=== PATIENT | female | born 1995 ===

== ENCOUNTER 2017-01-27 09:11 | Emergency (ER) | payer OTHER, SELFPAY ==
[2017-01-27 09:40] VITALS: RESP 18
[2017-01-27 10:00] VITALS: BP 119/58; PULSE 70; TEMP 98; O2SAT 99
[2017-01-27 10:23] LABS: RBC URINE 10 /hpf (0-3); URINE BACTERIA OCC (<OCC); URINE BILIRUBIN NEGATIVE (NEGATIVE); URINE BLOOD SMALL (NEGATIVE); URINE COLOR YELLOW (YELLOW); URINE GLUCOSE (UA) NEG (Normal); URINE KETONE NEGATIVE (NEGATIVE); URINE LEUKOCYTE ESTERASE LARGE Leu/uL (Negative); URINE PROTEIN 30 mg/dL (NEGATIVE); URINE UROBILINOGEN 0.2-1.0 mg/dL (0.2-1.0); WBC URINE 28 /hpf (0-5)
--- NOTE | 2017-01-27 10:38 | ED PDOC ---
HPI: Female Pain Time Seen by Provider: 01/27/17 09:26 Chief Complaint (Nursing): Female Genitourinary Chief Complaint (Provider): Female Genitourinary History Per: Patient History/Exam Limitations: no limitations Onset/Duration Of Symptoms: Days (x90) Current Symptoms Are (Timing): Still Present Additional Complaint(s): Manjula Devine is a 21 year old female presenting to the ED for an evaluation of chronic vaginal pain and burning occurring for 3 months. The patient states her symptoms have sometimes been relieved but always return, worsening over the last few days prompting her ED visit. She states associated white discharge and pain during urination and sexual activity. The patient has visited the clinic prior to this and was told that she has an opening in her vagina. The patient denies vaginal bleeding, fever, abdominal pain, or any specific trauma. PMD: Non [facility] Provider Past Medical History Reviewed: Historical Data, Nursing Documentation, Vital Signs Vital Signs: Last Vital Signs Temp 98 F 01/27/17 09:59 Pulse 70 01/27/17 09:59 Resp 18 01/27/17 09:59 BP 119/58 L 01/27/17 09:59 Pulse Ox 99 01/27/17 09:59 - Medical History PMH: No Chronic Diseases - Family History Family History: States: Unknown Family Hx - Social History Current smoker - smoking cessation education provided: No Ex-Smoker (has not smoked in the last 12 months): No Alcohol: None Drugs: Denies - Immunization History Hx Tetanus Toxoid Vaccination: No Hx Influenza Vaccination: No Hx Pneumococcal Vaccination: No - Home Medications Home Medications: Ambulatory Orders Medication Instructions Recorded Miconazole 2% Vaginal [Monistat 7 1 ea VG DAILY #1 tube 01/27/17 Vaginal Cream] Nitrofurantoin Macrocrystals 100 mg PO BID #10 cap 01/27/17 [Macrobid] - Allergies Allergies/Adverse Reactions: Allergies Allergy/AdvReac Type Severity Reaction Status Date / Time No Known Allergies Allergy Verified 01/27/17 09:38 Review of Systems ROS Statement: Except As Marked, All Systems Reviewed And Found Negative Constitutional: Negative for: Fever Gastrointestinal: Negative for: Abdominal Pain Genitourinary Female: Positive for: Dysuria, Vaginal Discharge (white), Other ( vaginal pain and burning). Negative for: Vaginal Bleeding Physical Exam - Reviewed Nursing Documentation Reviewed: Yes Vital Signs Reviewed: Yes - Physical Exam Appears: Positive for: Well, Non-toxic, No Acute Distress Head Exam: Positive for: ATRAUMATIC, NORMAL INSPECTION, NORMOCEPHALIC Skin: Positive for: Normal Color, Warm, DRY Eye Exam: Positive for: EOMI, Normal appearance, PERRL ENT: Positive for: Normal ENT Inspection Neck: Positive for: Normal, Painless ROM, Supple Cardiovascular/Chest: Positive for: Regular Rate, Rhythm, Chest Non Tender Respiratory: Positive for: Normal Breath Sounds. Negative for: Respiratory Distress Gastrointestinal/Abdominal: Positive for: Normal Exam, Bowel Sounds, Soft. Negative for: Tenderness Pelvic Exam: Positive for: External Exam Normal (completed with robot technician [place] present), Speculum Exam Normal (significant amount of white discharge ), Discharge, Other (vulva - erythematous). Negative for: Active Bleeding, Blood, Lesions (or lacerations ) Back: Positive for: Normal Inspection Extremity: Positive for: Normal ROM Neurologic/Psych: Positive for: Alert, Oriented (x3). Negative for: Motor/ Sensory Deficits - ECG O2 Sat by Pulse Oximetry: 99 (RA) Pulse Ox Interpretation: Normal Medical Decision Making Medical Decision Making: Time: 09:26 Impression: Vulva vaginitis Differential includes but is not limited to Vero, UTI Plan: * ED Urine POC * Urine C&S * UA * Reevaluation Scribe Attestation: Documented by Jessica Nogueira, acting as a scribe for Rosibel Bell MD. Provider Scribe Attestation: All medical record entries made by the Scribe were at my direction and personally dictated by me. I have reviewed the chart and agree that the record accurately reflects my personal performance of the history, physical exam, medical decision making, and the department course for this patient. I have also personally directed, reviewed, and agree with the discharge instructions and disposition. Disposition - Clinical Impression Clinical Impression: Urinary tract infection, Vulvovaginitis - Patient ED Disposition Is Patient to be Admitted: No Doctor Will See Patient In The: Office Counseled Patient/Family Regarding: Studies Performed, Diagnosis, Need For Followup - Disposition Referrals: [facility] [Outside] Disposition: Routine/Home Disposition Time: 11:12 Condition: GOOD Additional Instructions: Take your medications as instructed. Follow up with your PCP in 3 days. Instructions: Urinary Tract Infection in Women (ED), Vulvovaginal Candidiasis ( ED)
[2017-01-27] MEDS ORDERED: Fluconazole 150 MG TAB PO ONE (11:30)
== END 2017-01-27 12:06 | disposition home or self-care (01) ==
LOC: H.ER 09:11
DX: N76.0 Acute vaginitis (principal); N39.0 Urinary tract infection, site not specified

== ENCOUNTER 2017-03-27 11:23 | Emergency (ER) | payer OTHER ==
[2017-03-27 11:32] VITALS: BMI 23.6
[2017-03-27] MEDS ORDERED: Sodium Chloride 0.9% 1,000 ML IV STA (12:04)
[2017-03-27 12:29] VITALS: RESP 16
--- NOTE | 2017-03-27 12:44 | ED PDOC ---
HPI: Female Pain Additional Complaint(s): 21F p/w suprapubic pain and urinary frequency w/o pain or burning that then developed into RIGHT CVA tenderness with associated chills and subjective fever. She currently denies any N/V, SOB, chest pain, palpitations. She was treated with 3 days of BID antibiotics within the past month for a UTI. PMD: [facility] PMH: None PSH: None Allergies: NKDA Smoker: No Alcohol: Socially Drugs: Denies LMP: 03/10/2017 <Kimberly Nguyễn - Last Filed: 03/27/17 13:20> <Pepito Barrett III - Last Filed: 03/29/17 12:35> Time Seen by Provider: 03/27/17 12:04 Chief Complaint (Nursing): Female Genitourinary Supervising Attending Note - Attestation: I have personally seen and examined this patient.: Yes I have fully participated in the care of the patient.: Yes I have reviewed all pertinent clinical information, including history, physical exam and plan: Yes <Pepito Barrett III - Last Filed: 03/29/17 12:35> Past Medical History Vital Signs: Last Vital Signs Temp 36.3 C L 03/27/17 11:30 Pulse 70 03/27/17 11:30 Resp 16 03/27/17 12:29 BP 115/57 L 03/27/17 11:30 Pulse Ox 99 03/27/17 11:30 - Family History Family History: States: Unknown Family Hx - Immunization History Hx Tetanus Toxoid Vaccination: No Hx Influenza Vaccination: No Hx Pneumococcal Vaccination: No <Kimberly Nguyễn - Last Filed: 03/27/17 13:20> Vital Signs: Last Vital Signs Temp 98.1 F 03/27/17 16:22 Pulse 67 03/27/17 16:22 Resp 16 03/27/17 16:22 BP 114/78 03/27/17 16:22 Pulse Ox 100 03/27/17 16:22 <Pepito Barrett III - Last Filed: 03/29/17 12:35> - Home Medications Home Medications: Ambulatory Orders Medication Instructions Recorded Miconazole 2% Vaginal [Monistat 7 1 ea VG DAILY #1 tube 01/27/17 Vaginal Cream] Nitrofurantoin Macrocrystals 100 mg PO BID #10 cap 01/27/17 [Macrobid] Ciprofloxacin [Cipro] 500 mg PO BID #14 tab 03/27/17 Ibuprofen [Motrin Tab] 600 mg PO Q6 PRN #15 tab 03/27/17 - Allergies Allergies/Adverse Reactions: Allergies Allergy/AdvReac Type Severity Reaction Status Date / Time No Known Allergies Allergy Verified 03/27/17 11:52 Review of Systems Constitutional: Positive for: Chills Genitourinary Female: Positive for: Frequency (RIGHT Back pain) <Kimberly Nguyễn - Last Filed: 03/27/17 13:20> Physical Exam - Reviewed Vital Signs Reviewed: Yes - Physical Exam Appears: Positive for: Well, Non-toxic, No Acute Distress Head Exam: Positive for: ATRAUMATIC, NORMAL INSPECTION Skin: Positive for: Normal Color, Warm, Dry Eye Exam: Positive for: Normal appearance, EOMI Cardiovascular/Chest: Positive for: Regular Rate, Rhythm Respiratory: Positive for: Normal Breath Sounds. Negative for: Wheezing Gastrointestinal/Abdominal: Positive for: Bowel Sounds, Soft. Negative for: Tenderness Back: Positive for: R CVA Tenderness Extremity: Positive for: Normal ROM <Kimberly Nguyễn - Last Filed: 03/27/17 13:20> - Laboratory Results Result Diagrams: 03/27/17 12:30 03/27/17 12:30 - ECG O2 Sat by Pulse Oximetry: 99 <Kimberly Nguyễn - Last Filed: 03/27/17 13:20> - Laboratory Results Result Diagrams: 03/27/17 12:30 03/27/17 12:30 <Pepito Barrett III - Last Filed: 03/29/17 12:35> Medical Decision Making Medical Decision Making: Suspect mild pyelonephritis. - CBC: no leukocytosis, no anemia - CMP: - Urinalysis: small blood, Leuks mod, WBC + - Urine C&S: pending - U preg: negative Pt clinically has mild pyelonephritis and can be discharged on PO antibiotics with [facility] follow up. <Kimberly Nguyễn - Last Filed: 03/27/17 13:20> Disposition - Patient ED Disposition Is Patient to be Admitted: No Counseled Patient/Family Regarding: Studies Performed, Diagnosis, Need For Followup, Rx Given - Disposition Disposition: Routine/Home Disposition Time: 13:20 <Kimberly Nguyễn Last Filed: 03/27/17 13:20> <Pepito Barrett III - Last Filed: 03/29/17 12:35> - Clinical Impression Clinical Impression: Pyelonephritis - Disposition Referrals: [facility] [Outside] Condition: GOOD Additional Instructions: Followup with clinic in 2-3 days for re-evaluation and culture results. Take cipro 500mg 2x daily for 7 days for infection. Use motrin 600mg for pain or fever. Return to ER immediately for fever, chills, worse pain or any concern., Prescriptions: Ciprofloxacin [Cipro] 500 mg PO BID #14 tab Ibuprofen [Motrin Tab] 600 mg PO Q6 PRN #15 tab PRN Reason: Pain, Moderate (4-7) Instructions: Acute Pyelonephritis (ED) Forms: [facility] ([place])
[2017-03-27 13:00] LABS: BASO # 0.1 K/uL (0.0-0.2); BASO % 0.7 % (0.0-2.0); EOS # 0.1 K/uL (0.0-0.7); EOS % 0.8 % (0.0-4.0); HEMATOCRIT 41.9 % (34.0-47.0); LYMPH # 1.6 K/uL (1.0-4.3); LYMPH % 16.5 % (20.0-40.0); MEAN CELL VOLUME 87.1 fl (81.0-99.0); MEAN CORPUSCULAR HEMOGLOBIN 29.1 pg (27.0-31.0); MEAN CORPUSCULAR HGB CONC 33.4 g/dL (33.0-37.0); MEAN PLATELET VOLUME 8.3 fl (7.2-11.7); MONO # 1.1 K/uL (0.0-0.8); MONO % 11.4 % (0.0-10.0); NEUT # 6.9 K/uL (1.8-7.0); NEUT % 70.6 % (50.0-75.0); NRBC % 0.1 % (0.0-0.0); RED CELL DISTRIBUTION WIDTH 12.6 % (11.5-14.5); WHITE BLOOD COUNT 9.7 K/uL (4.8-10.8)
[2017-03-27 13:02] LABS: RBC URINE 11 /hpf (0-3); RENAL EPITHELIAL 1 /hpf (0-3); TRANSITIONAL EPITHIAL 2 /hpf (0-3); URINE BACTERIA RARE (<OCC); URINE BILIRUBIN NEGATIVE (NEGATIVE); URINE BLOOD SMALL (NEGATIVE); URINE COLOR YELLOW (YELLOW); URINE GLUCOSE (UA) NEG (Normal); URINE KETONE NEGATIVE (NEGATIVE); URINE LEUKOCYTE ESTERASE MOD Leu/uL (Negative); URINE PROTEIN 100 mg/dL (NEGATIVE); URINE UROBILINOGEN 0.2-1.0 mg/dL (0.2-1.0); WBC URINE 110 /hpf (0-5)
[2017-03-27 13:13] LABS: ALB/GLOB RATIO 1.6 (1.0-2.1); ALKALINE PHOSPHATASE 44 U/L (38-126); ALT/SGPT 22 U/L (9-52); AST/SGOT 22 U/L (14-36); BILIRUBIN,TOTAL 0.7 mg/dl (0.2-1.3); BLOOD UREA NITROGEN 8 mg/dl (7-17); CALCIUM 9.4 mg/dL (8.4-10.2); CARBON DIOXIDE 24 mmol/L (22-30); CHLORIDE 105 mmol/L (98-107); GFR AFRICAN-AMERICAN > 60; GLUCOSE,RANDOM 85 mg/dL (65-105); POTASSIUM 3.7 MMOL/L (3.6-5.0); SODIUM 141 mmol/l (132-148); TOTAL PROTEIN 7.8 G/DL (6.3-8.2)
[2017-03-27] MEDS ORDERED: cefTRIAXone IV 1 gm in Dextros 50 ML IVPB STA (13:13)
[2017-03-27] MEDS ORDERED: cefTRIAXone IV 1 gm in Dextros 50 ML IVPB ONE (15:15)
[2017-03-27 16:33] VITALS: BP 114/78; PULSE 67; TEMP 98.1; O2SAT 100
== END 2017-03-27 16:22 | disposition home or self-care (01) ==
LOC: H.ER 11:23
DX: N10 Acute pyelonephritis (principal)
CPT/HCPCS: 80053; 81003; 81025; 85025; 87086; 87181; 96361; 96365; 99283; J0696; J7040